=== PATIENT | male | born 1950 | race Caucasian/White ===

== ENCOUNTER 2016-05-05 07:32 | Day surgery (SDC) | payer OTHER ==
--- NOTE | 2016-04-21 14:35 | GHP ---
[f rep st] PREOP HISTORY AND PHYSICAL DATE OF ADMISSION: 05/05/2016 HISTORY OF PRESENT ILLNESS: Patient returns to our office to discuss a left inguinal soreness and pressure. He is approximately 4 months postop from bilateral inguinal hernia repair. Patient reports he does have mild osteoarthritis of his left hip and explained the pain could be due to that. He also has a small ache on the right side. He denies any testicular pain, no dysuria. PAST SURGICAL HISTORY: Includes bilateral inguinal hernia repair, ORIF of the elbow. MEDICATIONS: None. ALLERGIES: Erythromycin. SOCIAL HISTORY: He is a former smoker, but it is a remote history. Works as a schmid. No illegal drug use. REVIEW OF SYSTEMS: He had a negative 10-point review of systems. PHYSICAL EXAM: GENERAL: Patient is a thin/fit appearing male in no apparent distress. HEAD AND NECK: Normocephalic, atraumatic. CHEST: CTA bilaterally. HEART: Regular rhythm and rate. ABDOMEN: There is a small left inguinal hernia present, well-healed laparoscopic incisions. The rest of the abdomen is soft, nontender. EXTREMITIES: No lower extremity edema. IMPRESSION: Recurrent left, possibly also right, inguinal hernia. RECOMMENDATION: Open left inguinal hernia repair was discussed with the patient in detail with Dr. Cadet. Patient and Dr. Cadet discussed his occupation as a schmid, and hopefully the patient will have some down time after this upcoming surgery. Risks, including another recurrence, infection, bleeding, scrotal edema, nerve injury were discussed with the patient in detail , and patient elects to proceed with scheduling surgery for May 05, 2016. This will be an open left inguinal hernia repair, possibly bilateral. /[id number]/MODL MTDD
[2016-05-05] MEDS ORDERED: LIDOCAINE 1% 30 ML SDV ONE (07:58)
[2016-05-05] MEDS ORDERED: BUPIVACAINE 0.5% 30 ML SDV ONE (07:59)
[2016-05-05] MEDS ORDERED: SODIUM BICARBONATE 10 MEQ/10 ML SYR IVP ONE (07:59)
[2016-05-05] MEDS ORDERED: LIDOCAINE 1% 5 ML SDV ONE (08:23)
[2016-05-05] MEDS ORDERED: ceFAZolin 2 GM/DEXTROSE 100 ML IV ONE (08:30)
[2016-05-05] MEDS ORDERED: LIDOCAINE 1% 5 ML SDV ID PRN (08:35)
[2016-05-05] MEDS ORDERED: LR 1,000 ML IV ONE (08:35)
[2016-05-05] MEDS ORDERED: fentaNYL 100 MCG/2 ML INJ ONE ×2 (09:02→10:30)
[2016-05-05] MEDS ORDERED: PROPOFOL/EMULSION 500 MG/50 ML BOTTLE IV ONE (09:13)
[2016-05-05] MEDS ORDERED: LIDOCAINE 2% 5 ML SDV ONE (09:36)
[2016-05-05] MEDS ORDERED: DEXAMETHASONE 4 MG/ML VIAL ONE (09:36)
[2016-05-05] MEDS ORDERED: ROCURONIUM 50 MG/5 ML VIAL ONE (09:36)
[2016-05-05] MEDS ORDERED: ONDANSETRON 4 MG/2 ML VIAL ONE (09:48)
[2016-05-05] MEDS ORDERED: KETOROLAC 30 MG/1 ML SDV ONE (09:48)
[2016-05-05] MEDS ORDERED: GLYCOPYRROLATE 0.2 MG/1 ML VIAL ONE (10:01)
[2016-05-05] MEDS ORDERED: NEOSTIGMINE METHYLSULFATE 5 MG/5 ML SYR ONE (10:01)
[2016-05-05] MEDS ORDERED: ACETAMINOPHEN 500 MG TAB ONE (11:28)
--- NOTE | 2016-05-16 17:05 | GOP ---
[f rep st] OPERATIVE REPORT DATE OF OPERATION: 05/05/2016 SURGEON: Shiva Cadet MD GI ASST: NASEEM Conley. ANESTHESIOLOGIST: Dr. New. PREOPERATIVE DIAGNOSIS: Recurrent left inguinal hernia. POSTOPERATIVE DIAGNOSIS: Recurrent left inguinal hernia. PROCEDURE PERFORMED: Repair of recurrent left inguinal hernia with mesh. FINDINGS: The patient was found to have a direct tiny tear at the internal ring and another tear at the pubic tubercle. DESCRIPTION OF PROCEDURE: The patient was taken to the operating room, where he received satisfacto ry general endotracheal anesthesia by Dr. New. He was placed in the supine position, prepped an d draped in the usual sterile fashion. A left inguinal incision was made and carried through subcut aneous tissue. Hemostasis was obtained with electrocautery and 3-0 Vicryl ties. The external obliq ue was opened through the external ring. The cord was mobilized from the floor of the canal. There were no significant indirect hernias. The floor of the canal was examined with the above-noted fin dings of a very small defect at the internal ring and also a small defect at the pubic tubercle. Vikas th defects were repaired with interrupted 0 Surgilon sutures in a myvmwd-rx-ngxer manner. A Covidie n ProGrip patch was placed over the inguinal floor. A split patch was used to pass the limb around the cord structures. It was then anchored in place with interrupted 0 Surgilon sutures, securing it to the shelving edge of the inguinal ligament, to the lacunar ligament, and to the internal oblique fascia. The wound was infiltrated with 0.5% Marcaine. Cord and nerve root were replaced in their anatomic positions. External oblique was closed with running 2-0 Vicryl suture, subcu with a runnin g 3-0 Vicryl suture, and the skin with a 4-0 Monocryl subcuticular stitch. There were no complicati ons. Blood loss was negligible. /[id number]/MODL
== END 2016-05-05 11:55 | disposition home or self-care (01) ==
LOC: FSGY 07:32
PROVIDERS: ATTEND Surgery
PROC: 0YQ60ZZ Repair Left Inguinal Region, Open Approach (ICD-10-PCS; principal; 2016-05-05 08:59)
DX: K40.91 Unilateral inguinal hernia, without obstruction or gangrene, recurrent (principal); K21.9 Gastro-esophageal reflux disease without esophagitis
CPT/HCPCS: C1781; J0690; J1100; J1885; J2405; J2704; J2710; J3010